=== PATIENT | female | born 1980 | race African-American/Black ===

== ENCOUNTER 2017-01-05 15:18 | Emergency (ER) | payer SELFPAY ==
[~2017-01-05] VITALS: Ht 154.9 cm; Wt 62.5 kg
[~2017-01-05 15:18] MED LIST: NAPR550 PO; NORC7.5T PO
[2017-01-05 15:20] VITALS: BP 118/62; PULSE 83; RESP 16; TEMP 97.7; O2SAT 99
[2017-01-05 15:37] LABS: BLOOD, URINE NEG (NEG); GLUCOSE,URINE NEG (NEG); KETONE, URINE TRACE mg/dL (NEG); NITRITE,URINE NEG (NEG)
[2017-01-05 15:46] LABS: COMMENT (UR) CULT NOT INDICATED; CULTURE IF INDICATED CULT NOT INDICATED; METHOD OF COLLECTION CLEAN CATCH; URINE COLOR YELLOW (YELLW/STRAW); WBC, URINE 0-2 /hpf (0-5)
[2017-01-05] MEDS ORDERED: IBUP1TAB5 PO (15:52)
--- NOTE | 2017-01-05 15:52 | PD ---
HPI Chief Complaint: Abdominal Pain Time Seen by Provider: 15:29 Travel History International Travel<30 days: No Contact w/Intl Traveler<30days: No Traveled to known affect area: No History of Present Illness HPI The patient is 36 years old and complains of pain in the right lower quadrant for a couple days. It's associated with decreased appetite. Pain is now constant and worse with palpation. She's had no abnormal bleeding or discharge. Last menstruation was about 2-1/2 months prior as she uses the implantable control device. She denies fever. She's had no abnormal discharge or bleeding. She reports similar episodes numerous times, intermittently, over years however is concerned she might have appendicitis today. PFSH Past Medical History Hx Anticoagulant Therapy: No Asthma: Yes Diabetes: No Diminished Hearing: No ?: Not : 2 Para: 2 Social History Alcohol Use: No Tobacco Use: No Substance Use: No Allergies-Medications (Allergen,Severity, Reaction): Coded Allergies: No Known Allergies (Unverified Adverse Reaction, Unknown, 01/05/17) Reported Meds & Prescriptions Reported Meds & Active Scripts Active Ibuprofen 400 Mg Tab 400 Mg PO Q8H PRN Reported [ control] .XX DIRECTED Review of Systems Except as stated in HPI: all other systems reviewed are Neg General / Constitutional: No: Fever Gastrointestinal: Positive: Abdominal Pain Physical Exam Narrative GENERAL: 36-year-old female pleasant well-nourished well-developed SKIN: Warm and dry. HEAD: Atraumatic. Normocephalic. EYES: Pupils equal and round. No scleral icterus. No injection or drainage. ENT: No nasal bleeding or discharge. Mucous membranes pink and moist. NECK: Trachea midline. No JVD. CARDIOVASCULAR: Regular rate and rhythm. RESPIRATORY: No accessory muscle use. Clear to auscultation. Breath sounds equal bilaterally. GASTROINTESTINAL: There is tenderness in the right lower quadrant. Abdomen is soft otherwise. MUSCULOSKELETAL: Extremities without clubbing, cyanosis, or edema. No obvious deformities. NEUROLOGICAL: Awake and alert. No obvious cranial nerve deficits. Motor grossly within normal limits. Five out of 5 muscle strength in the arms and legs. Normal speech. PSYCHIATRIC: Appropriate mood and affect; insight and judgment normal. Data Data Last Documented VS Vital Signs Date Time Temp Pulse Resp B/P (MAP) Pulse Ox O2 Delivery O2 Flow Rate FiO2 01/05/17 16:10 16 98 Room Air 01/05/17 15:20 97.7 83 118/62 (80) vital signs are normal Orders Orders Urinalysis - C+S If Indicated (01/05/17 15:19) Ed Urine Pregnancytest Poc (01/05/17 15:19) Complete Blood Count With Diff (01/05/17 15:47) Comprehensive Metabolic Panel (01/05/17 15:47) Lipase (01/05/17 15:47) Urinalysis - C+S If Indicated (01/05/17 15:47) Ct Abd/Pel W Iv Contrast(Rout) (01/05/17 15:47) Iv Access Insert/Monitor (01/05/17 15:47) Ecg Monitoring (01/05/17 15:47) Oximetry (01/05/17 15:47) Sodium Chloride 0.9% Flush (Ns Flush) (01/05/17 16:00) Ketorolac Inj (Toradol Inj) (01/05/17 16:00) Ed Urine Pregnancytest Poc (01/05/17 15:47) Iohexol 350 Inj (Omnipaque 350 Inj) (01/05/17 16:44) Labs Laboratory Tests Test 01/05/17 15:30 01/05/17 15:53 Urine Collection Type CLEAN CATCH Urine Color YELLOW Urine Turbidity CLEAR Urine pH 6.0 Urine Specific [place] 1.032 Urine Protein NEG mg/dL Urine Glucose (UA) NEG mg/dL Urine Ketones TRACE mg/dL Urine Occult Blood NEG Urine Nitrite NEG Urine Bilirubin NEG Urine Leukocyte Esterase NEG Urine WBC 0-2 /hpf Urine Squamous Epithelial Cells 6-8 /hpf Microscopic Urinalysis Comment CULT NOT INDICATED Urine Collection Time 15:30 White Blood Count 7.8 TH/MM3 Red Blood Count 4.37 MIL/MM3 Hemoglobin 12.0 GM/DL Hematocrit 35.9 % Mean Corpuscular Volume 82.1 FL Mean Corpuscular Hemoglobin 27.5 PG Mean Corpuscular Hemoglobin Concent 33.5 % Red Cell Distribution Width 14.1 % Platelet Count 187 TH/MM3 Mean Platelet Volume 8.6 FL Neutrophils (%) (Auto) 60.3 % Lymphocytes (%) (Auto) 27.7 % Monocytes (%) (Auto) 6.1 % Eosinophils (%) (Auto) 2.1 % Basophils (%) (Auto) 3.8 % Neutrophils # (Auto) 4.7 TH/MM3 Lymphocytes # (Auto) 2.1 TH/MM3 Monocytes # (Auto) 0.5 TH/MM3 Eosinophils # (Auto) 0.2 TH/MM3 Basophils # (Auto) 0.3 TH/MM3 CBC Comment DIFF FINAL Differential Comment Blood Urea Nitrogen 14 MG/DL Creatinine 0.69 MG/DL Random Glucose 72 MG/DL Total Protein 7.2 GM/DL Albumin 3.6 GM/DL Calcium Level 8.8 MG/DL Alkaline Phosphatase 70 U/L Aspartate Amino Transf (AST/SGOT) 16 U/L Alanine Aminotransferase (ALT/SGPT) 33 U/L Total Bilirubin 0.4 MG/DL Sodium Level 138 MEQ/L Potassium Level 3.8 MEQ/L Chloride Level 104 MEQ/L Carbon Dioxide Level 26.7 MEQ/L Anion Gap 7 MEQ/L Estimat Glomerular Filtration Rate 118 ML/MIN Lipase 123 U/L MDM Medical Decision Making Medical Screen Exam Complete: Yes Emergency Medical Condition: Yes Medical Record Reviewed: Yes Differential Diagnosis Constipation, Gastritis, Acute Cholecystitis, Biliary Colic, Pancreatitis, PEREZ , Hepatitis, Bowel Obstruction, Cystitis, Mesenteric Ischemia, AAA, Appendicitis , Renal Stone/Hydronephrosis, GERD, perforated viscous Narrative Course CBC & BMP Diagram 01/05/17 15:53 Total Protein 7.2, Albumin 3.6, Calcium Level 8.8, Alkaline Phosphatase 70, Aspartate Amino Transf (AST/SGOT) 16, Alanine Aminotransferase (ALT/SGPT) 33, Total Bilirubin 0.4 Urinalysis is normal The urine is negative CT scan shows no acute fracture or peritoneal disease The patient is resting comfortably and feels better, is alert and in no distress. The patients results and examination findings were discussed. The repeat examination is unremarkable and benign. The history, exam, diagnostic testing, and current condition do not suggest any significant pathology to warrant further testing, continued ED treatment, admission, or surgical evaluation at this point. The vital signs have been stable. The patient does not have uncontrollable pain, intractable vomiting, or other significant symptoms. The patient's condition is stable and appropriate for discharge. The patient will pursue further outpatient evaluation with a primary care physician or other designated or consulting physician as indicated in the discharge instructions. The patient expressed understanding and was agreeable with this plan. Diagnosis Primary Impression: Chronic pelvic pain in female Referrals: Primary Care Physician 2 days Additional Instructions: You have a choice when it comes to health care, and we are glad that you chose [facility]. Hopefully, we have met your expectations on today's visit. You are welcome to return to [facility] at any time, as we are committed to meeting the health care needs of our community. Med/Other Pt SpecificInfo: Prescription(s) given Scripts Ibuprofen (Ibuprofen) 400 Mg Tab 400 MG PO Q8H Y for PAIN SCALE 6 TO 10, #20 TAB 0 Refills Prov: Ranjeet Chu MD 01/05/17 Disposition: 01 DISCHARGE HOME Condition: Stable Ranjeet Chu MD Jan 05, 2017 15:52
[2017-01-05] MEDS ORDERED: KETOROLAC TROMETHAMINE 30 MG/ML (IVP) VIAL IVP ONE (16:00)
[2017-01-05] MEDS ORDERED: SODIUM CHLORIDE 0.9% FLUSH 10 ML FLUSH IV FLUSH PRN (16:00)
[2017-01-05 16:10] VITALS: RESP 16; O2SAT 98
[2017-01-05 16:11] LABS: AUTOMATED NEUTROPHIL # 4.7 TH/MM3 (1.8-7.7); BASOPHIL # 0.3 TH/MM3 (0-0.2); BASOPHIL % 3.8 % (0.0-2.0); EOSINOPHIL # 0.2 TH/MM3 (0-0.4); EOSINOPHIL % 2.1 % (0.0-4.0); HEMATOCRIT 35.9 % (35.0-46.0); HEMO FLAGS DIFF FINAL; LYMPH % 27.7 % (9.0-44.0); LYMPHOCYTE # 2.1 TH/MM3 (1.0-4.8); MEAN CELL VOLUME 82.1 FL (80.0-100.0); MEAN CORPUSCULAR HEMOGLOBIN 27.5 PG (27.0-34.0); MEAN CORPUSCULAR HGB CONC 33.5 % (32.0-36.0); MONO % 6.1 % (0.0-8.0); NEUT % 60.3 % (16.0-70.0); PLATELET COUNT 187 TH/MM3 (150-450); RED BLOOD COUNT 4.37 MIL/MM3 (4.00-5.30); RED CELL DISTRIBUTION WIDTH 14.1 % (11.6-17.2); WHITE BLOOD COUNT 7.8 TH/MM3 (4.0-11.0)
[2017-01-05] MEDS ORDERED: birth control (16:12)
[2017-01-05 16:15] LABS: CHLORIDE 104 MEQ/L (98-107); POTASSIUM 3.8 MEQ/L (3.5-5.1); SODIUM (NA) 138 MEQ/L (136-145)
[2017-01-05 16:19] LABS: ANION GAP 7 MEQ/L (5-15); BICARBONATE 26.7 MEQ/L (21.0-32.0); BLOOD UREA NITROGEN 14 MG/DL (7-18)
[2017-01-05 16:22] LABS: ALT (GPT) 33 U/L (10-53); AST (GOT) 16 U/L (15-37); GLOMERULAR FILTRATION RATE 118 ML/MIN (>89)
[2017-01-05 16:23] LABS: TOTAL BILIRUBIN ADULT 0.4 MG/DL (0.2-1.0)
[2017-01-05 16:25] LABS: ALKALINE PHOSPHATASE 70 U/L (45-117)
[2017-01-05] MEDS ORDERED: IOHEXOL 350 MG/ML 10 ML VIAL (for RAD DIAG) IVCONTRAST ONE (16:44)
--- NOTE | 2017-01-05 16:56 | RADRPT ---
EXAM DATE/TIME: 01/05/2017 16:38 [facility] COMPARISON: CT ABDOMEN & PELVIS W CONTRAST, November 05, 2014, 12:29. INDICATIONS : Right lower quadrant pain. Evaluate for appendicitis. IV CONTRAST: 90 cc Omnipaque 350 (iohexol) IV ORAL CONTRAST: No oral contrast ingested. RADIATION DOSE: 5.60 CTDIvol (mGy) MEDICAL HISTORY : None SURGICAL HISTORY : None. ENCOUNTER: Initial ACUITY: 2 days PAIN SCALE: 4/10 LOCATION: Right lower quadrant TECHNIQUE: Volumetric scanning of the abdomen and pelvis was performed. Using automated exposure control and ad justment of the mA and/or kV according to patient size, radiation dose was kept as low as reasonably achievable to obtain optimal diagnostic quality images. DICOM format image data is available electro nically for review and comparison. FINDINGS: LOWER LUNGS: The visualized lower lungs are clear. LIVER: Homogeneous density without lesion. There is no dilation of the biliary tree. No calcified gallston es. SPLEEN: Normal size without lesion. PANCREAS: Within normal limits. KIDNEYS: Normal in size and shape. There is no mass, stone or hydronephrosis. ADRENAL GLANDS: Within normal limits. VASCULAR: There is no aortic aneurysm. BOWEL/MESENTERY: The stomach, small bowel, and colon demonstrate no acute abnormality. There is no free intraperitone al air or fluid. Appendix is normal. ABDOMINAL WALL: Within normal limits. Navel piercing is present. RETROPERITONEUM: There is no lymphadenopathy. BLADDER: No wall thickening or mass. REPRODUCTIVE: Within normal limits. INGUINAL: There is no lymphadenopathy or hernia. MUSCULOSKELETAL: No acute abnormality. CONCLUSION: No acute finding is identified within the abdomen or pelvis. The appendix is normal. Ariel Fuentes MD on January 05, 2017 at 16:50 Board Certified Radiologist. This report was verified electronically.
[2017-01-05 17:39] VITALS: BP 113/67
[2017-01-05 17:40] VITALS: RESP 16
== END 2017-01-05 18:46 | disposition home or self-care (01) ==
LOC: PHED 15:18
DX: R10.2 Pelvic and perineal pain (principal); G89.29 Other chronic pain
CPT/HCPCS: 74177; 80053; 81001; 83690; 84703; 85025; 96374; 99285; J1885; Q9967